=== PATIENT | male | born 1995 | race Caucasian/White ===

== ENCOUNTER → 2018-02-24 | Outpatient (REF) | payer SELFPAY ==
[~2018-02-24] MED LIST: HYDR-4309 PO; HYDR25SU51 RC
[2018-02-24 19:22] LABS: PLATELET COUNT, AUTOMATED 230 K/uL (150-450)
== END ==
PROVIDERS: ATTEND Family Medicine
DX: R07.9 Chest pain, unspecified (principal); R06.00 Dyspnea, unspecified
CPT/HCPCS: 82040; 82247; 82310; 82374; 82435; 82565; 82947; 84075; 84132; 84155; 84295; 84450; 84460; 84484; 84520; 85025; 85379

== ENCOUNTER → 2018-07-21 | Outpatient (CLI) | payer OTHER ==
[~2018-07-21] MED LIST changes: -HYDR-4309 PO; +HYDR-653 PO; +MELO-207 PO
[2018-07-21 14:21] LABS: PLATELET COUNT, AUTOMATED 251 K/uL (150-450)
--- NOTE | 2018-07-21 15:33 | RADIOLOGY IMAGING REPORT ---
FACILITY: [facility] - [place] PATIENT NAME: Kojo Gaffney : 1995 MR: [id number] V: [id number] EXAM DATE: ORDERING PHYSICIAN: ALAN JUSTICE TECHNOLOGIST: Location: [facility] - [place] Patient: Kojo Gaffney : 1995 Visit/Account:[id number] Date of Sevice: 07/21/2018 Exam type: KNEE 3 VIEW RIGHT History: knee pain Comparison: Left knee June 29, 2015 Findings: Three views of the right knee were submitted There is soft tissue prominence along the anterior aspect of the right knee. There suggestion of flu id in the suprapatellar bursa. There is no evidence of acute fracture or dislocation or significant arthritic change involving the right knee. No lytic or blastic bone lesion seen. IMPRESSION: 1. Soft tissue prominence along the anterior aspect of the right knee Suggestion of fluid in the suprapatellar bursa Report Dictated By: Esme Cantu MD at 07/21/2018 3:26 PM Report E-Signed By: Esme Cantu MD at 07/21/2018 3:28 PM WSN:[email or web address]
== END ==
LOC: LAB 14:02
PROVIDERS: ATTEND Internal Medicine
DX: M25.561 Pain in right knee (principal)
CPT/HCPCS: 36415; 82040; 82247; 82310; 82374; 82435; 82565; 82947; 84075; 84132; 84155; 84295; 84443; 84450; 84460; 84520; 84550; 85025; 86140